=== PATIENT | male | born 2000 | race Caucasian/White ===

== ENCOUNTER → 2023-02-10 07:08 | Outpatient (CLI) | payer BC, SELFPAY ==
--- NOTE | ~2023-02-10 | MR_ITS ---
EXAMINATION: MR wrist RT wo con DATE: 02/10/2023 07:55 INDICATION: Chronic right wrist pain and limited range of motion TECHNIQUE: Magnetic resonance imaging (MRI) of the right wrist was performed without intravenous cont rast. Sequences performed include axial PD-weighted FSE and PD-weighted FS FSE, coronal PD-weighted F S FSE and T1-weighted SE, and sagittal PD-weighted FS FSE and PD-weighted FSE. COMPARISON: None FINDINGS: Intrinsic ligaments: The scapholunate and lunotriquetral ligaments are normal. Triangular fibrocartilage complex (TFCC): The triangular fibrocartilage including its foveal and styloid attachments as well as the dorsal and volar radioulnar ligaments are normal. The ulnar collateral ligament, ulnotriquetral ligament and men iscal homologue are normal. The extensor carpi ulnaris tendon sheath is normal. Extensor wrist: Extensor tendons of the wrist are normal. No tenosynovitis. Flexor wrist: The flexor tendons of the wrist are normal. No abnormality in the carpal tunnel with normal median n erve. Guyon's canal: Guyon's canal including the ulnar nerve and artery are normal. Bones/other: Nonspecific mild increased marrow fluid signal at the trapezoid. No fracture, erosions, avascular nec rosis or pathologic marrow replacing process. Joint spaces are normal with no focal cartilage defect s appreciated. 4 x 3 x 3 mm ganglion cyst arising from the dorsal aspect of the radiolunate articulat ion and along the distal margin of the radial triquetral ligament. IMPRESSION: 1. 4 x 3 x 3 mm ganglion cyst arising from the dorsal aspect of the radiolunate articulation. 2. Nonspecific mild marrow edema at the trapezoid which is of indeterminate etiology or significance. Reviewed, dictated and finalized at location A. IMPRESSION: 1. 4 x 3 x 3 mm ganglion cyst arising from the dorsal aspect of the radiolunate articulation. 2. Nonspecific mild marrow edema at the trapezoid which is of indeterminate nadya ology or significance.
== END ==
PROVIDERS: PCP Nurse Practitioner Family; Visit Provider Nurse Practitioner Family
DX: M25.531 Pain in right wrist (principal); M25.631 Stiffness of right wrist, not elsewhere classified
CPT/HCPCS: 73221